=== PATIENT | male | born 1995 | race African-American/Black ===

== ENCOUNTER 2017-08-04 16:34 | Outpatient (CLI) | payer OTHER ==
--- NOTE | 2017-08-05 09:47 | MRI ---
MRI LEFT KNEE WITHOUT CONTRAST: HISTORY: N25.502. Lateral meniscal tear. COMPARISON: None. FINDINGS: Medial Meniscus: Intact. Lateral Meniscus: There is an incomplete radial oblique tear of the body of the lateral meniscus see n from the free edge to the white and intermediate zone and does not extend to the red zone. The ACL , PCL, and LCL and MCL are all intact. The lateral meniscal body measures up to 13 mm. Extensor Mechanism: Quadriceps tendon, patella, and patella tendon are all intact. Cartilage: Patellofemoral compartment: Intact. Medial Compartment: Intact. Lateral Compartment: Intact. Soft Tissues: Moderate joint effusion. Bones: No fracture or malalignment. There is trace meniscal edema of the lateral tibial plateau. Muscles: Normal muscle signal and bulk. IMPRESSION: 1. Nondisplaced radial oblique tear of the body and lateral meniscus extending from the free edge to the white and intermediate zones and the red zone. No displaced fragment. There is subsequent mild submeniscal edema of the lateral tibial plateau. 2. Small to moderate joint effusion. 3. The lateral meniscal body measures up to 13 mm. POS: [facility]
== END 2017-08-04 16:35 | disposition home or self-care (01) ==
LOC: MRI 16:34
PROVIDERS: ATTEND Orthopaedic Surgery
DX: M25.562 Pain in left knee (principal); M25.461 Effusion, right knee; S83.282A Other tear of lateral meniscus, current injury, left knee, initial encounter